=== PATIENT | male | born 1985 | race Two or more races ===

== ENCOUNTER 2018-07-02 16:21 | Emergency (ER) | payer SELFPAY ==
[~2018-07-02] VITALS: Ht 165.1 cm; Wt 54.4 kg
[2018-07-02 16:57] LABS: BASO # 0.2 x10^3/uL (0.0-0.2); BASO % 1 % (0-3); EOS # 0.1 x10^3/uL (0.0-0.7); EOS % 1 % (0-3); HEMATOCRIT 44.4 % (39.0-53.0); LYMPH # 2.7 x10^3/uL (1.0-4.8); LYMPH % 18 % (24-48); MEAN CORPUSCULAR HEMOGLOBIN 30 pg (25-35); MEAN CORPUSCULAR HGB CONC 34 g/dL (31-37); MEAN CORPUSCULAR VOLUME 90 fL (79-100); MONO # 0.7 x10^3/uL (0.0-1.1); MONO % 5 % (0-9); NEUT # 11.6 x10^3uL (1.8-7.7); NEUT % 76 % (31-73); PLATELET COUNT 319 x10^3/uL (140-400); RED BLOOD COUNT 4.95 x10^6/uL (4.30-5.70); WHITE BLOOD COUNT 15.2 x10^3/uL (4.0-11.0)
[2018-07-02] MEDS ORDERED: IOHEXOL 300 MG/ML 100ML VIAL. IV ONE (17:00)
[2018-07-02] MEDS ORDERED: ONDANSETRON PF 4 MG/2 ML VIAL. IV ONE (17:00)
[2018-07-02] MEDS ORDERED: MORPHINE SULFATE 4 MG/ML VIAL. IV ONE (17:00)
[2018-07-02] MEDS ORDERED: IV NORMAL SALINE 1000ML BAG 1,000 ML IV ONE (17:00)
[2018-07-02 17:11] LABS: ALBUMIN 4.4 g/dL (3.4-5.0); ALBUMIN/GLOBULIN RATIO 1.3 (1.0-1.7); CALCIUM 9.3 mg/dL (8.5-10.1); CREATININE 0.9 mg/dL (0.7-1.3); GFR 97.8; TOTAL BILIRUBIN 0.9 mg/dL (0.2-1.0); TOTAL PROTEIN 7.9 g/dL (6.4-8.2)
[2018-07-02 17:13] LABS: POTASSIUM 2.9 mmol/L (3.5-5.1)
[2018-07-02] MEDS ORDERED: CONTRAST GIVEN. MC PRN (17:15)
--- NOTE | 2018-07-02 17:45 | RAD ---
CT abdomen and pelvis with contrast: Reason for examination: Right lower quadrant pain. Evaluate for appendicitis. Helical images were obtained through the abdomen and pelvis with intravenous administration of 75 cc Omnipaque 300. Reconstruction was performed in sagittal and coronal planes. Exposure: One or more of the following individualized dose reduction techniques were utilized for this examination: 1. Automated exposure control 2. Adjustment of the mA and/or kV according to patient size 3. Use of iterative reconstruction technique. The lung bases are clear. The heart size is normal with no pericardial effusion seen. No abnormality seen at the liver, spleen, adrenal glands, gallbladder or pancreas. The kidneys show no renal masses the left kidney shows no hydronephrosis, renal calculi or obstructive uropathy. The right kidney however shows mild hydronephrosis and dilated ureter down to a calculus at the ureterovesical junction which appears to measure approximately 3.7 mm in greatest dimension. No abnormality seen at the appendix. The intestinal tract shows no abnormally dilated loops of bowel or bowel obstruction. No abnormalities in the stomach. The abdominal aorta and inferior vena cava show no acute abnormalities. No abnormality seen at the bladder, prostate gland or seminal vesicles. No acute bony abnormalities are seen. IMPRESSION: 3.7 mm calculus at the right ureterovesical junction causing obstructive uropathy with mild hydronephrosis. No abnormality seen at the appendix. Electronically signed by: Melina Arias MD (07/02/2018 5:42 PM) [facility]
[2018-07-02] MEDS ORDERED: HYDR-3164 PO (17:57)
[2018-07-02] MEDS ORDERED: ONDA4TAB7 PO (17:57)
[2018-07-02] MEDS ORDERED: TAMS0.4C97 PO (17:57)
[2018-07-02 18:00] VITALS: BP 133/72
[2018-07-02] MEDS ORDERED: POTASSIUM CHLORIDE 20 MEQ/15 ML ORAL LIQUID. PO ONE (18:00)
[2018-07-02] MEDS ORDERED: KETOROLAC 15 MG/ML VIAL. IV ONE (18:00)
--- NOTE | 2018-07-02 18:14 | PHYS DOC ---
Past Medical History Past Medical History: No Pertinent History Past Surgical History: No Surgical History Alcohol Use: None Drug Use: Marijuana Adult General Chief Complaint Chief Complaint: ABDOMINAL PAIN HPI HPI Patient is a 33 year old M P/W ABDO PAIN, RLQ PAIN. Sudden onset radiates to groin severe also feeling and some in the back had an episode of vomiting prior to arrival no prior history of anything Review of Systems Review of Systems Constitutional: Denies fever or chills [] Eyes: Denies change in visual acuity, redness, or eye pain [] HENT: Denies nasal congestion or sore throat [] Respiratory: Denies cough or shortness of breath [] Cardiovascular: No additional information not addressed in HPI [] GI: Integument: Denies rash or skin lesions [] Neurologic: Denies headache, focal weakness or sensory changes [] Endocrine: Denies polyuria or polydipsia [] All other systems were reviewed and found to be within normal limits, except as documented in this note. Current Medications Current Medications Current Medications Medications (Trade) Dose Ordered Sig/Marlene Start Time Stop Time Status Last Admin Dose Admin Info (CONTRAST GIVEN -- Rx MONITORING) 1 each PRN DAILY PRN 07/02/18 17:15 07/04/18 17:14 Iohexol (Omnipaque 300 Mg/ml) 75 ml 1X ONCE 07/02/18 17:00 07/02/18 17:01 DC 07/02/18 17:21 75 ML Ketorolac Tromethamine (Toradol 15mg Vial) 15 mg 1X ONCE 07/02/18 18:00 07/02/18 18:01 DC Morphine Sulfate (Morphine Sulfate) 4 mg 1X ONCE 07/02/18 17:00 07/02/18 17:01 DC 07/02/18 17:06 4 MG Ondansetron HCl (Zofran) 4 mg 1X ONCE 07/02/18 17:00 07/02/18 17:01 DC 07/02/18 17:05 4 MG Potassium Chloride (KCl Oral Soln) 40 meq 1X ONCE 07/02/18 18:00 07/02/18 18:01 DC Sodium Chloride 1,000 ml @ 1,000 mls/hr 1X ONCE 07/02/18 17:00 07/02/18 17:59 DC 07/02/18 17:05 1,000 MLS/HR Allergies Allergies Allergies Coded Allergies Type Severity Reaction Last Updated Verified No Known Drug Allergies 07/02/18 No Physical Exam Physical Exam Constitutional: Well developed, well nourished, no acute distress, non-toxic appearance. [] HENT: Normocephalic, atraumatic, bilateral external ears normal, oropharynx moist, no oral exudates, nose normal. [] Eyes: PERRLA, EOMI, conjunctiva normal, no discharge. [] Neck: Normal range of motion, no tenderness, supple, no stridor. [] Cardiovascular:Heart rate regular rhythm, no murmur [] Lungs & Thorax: Bilateral breath sounds clear to auscultation [] Abdomen: Bowel sounds normal, soft, RLQ tenderness, no masses, no pulsatile masses. [] : TESTICLES NORMAL NO TTP Skin: Warm, dry, no erythema, no rash. [] Back: No tenderness, no CVA tenderness. [] Extremities: No tenderness, no cyanosis, no clubbing, ROM intact, no edema. [] Neurologic: Alert and oriented X 3, normal motor function, normal sensory function, no focal deficits noted. [] Psychologic: Affect normal, judgement normal, mood normal. [] Current Patient Data Vital Signs Vital Signs Date Time Temp Pulse Resp B/P (MAP) Pulse Ox O2 Delivery O2 Flow Rate FiO2 07/02/18 17:06 20 98 Room Air 07/02/18 17:00 58 133/71 (91) 07/02/18 16:40 98.4 98.4 Lab Values Laboratory Tests Test 07/02/18 16:50 White Blood Count 15.2 x10^3/uL (4.0-11.0) H Red Blood Count 4.95 x10^6/uL (4.30-5.70) Hemoglobin 15.0 g/dL (13.0-17.5) Hematocrit 44.4 % (39.0-53.0) Mean Corpuscular Volume 90 fL (79-100) Mean Corpuscular Hemoglobin 30 pg (25-35) Mean Corpuscular Hemoglobin Concent 34 g/dL (31-37) Red Cell Distribution Width 13.0 % (11.5-14.5) Platelet Count 319 x10^3/uL (140-400) Neutrophils (%) (Auto) 76 % (31-73) H Lymphocytes (%) (Auto) 18 % (24-48) L Monocytes (%) (Auto) 5 % (0-9) Eosinophils (%) (Auto) 1 % (0-3) Basophils (%) (Auto) 1 % (0-3) Neutrophils # (Auto) 11.6 x10^3uL (1.8-7.7) H Lymphocytes # (Auto) 2.7 x10^3/uL (1.0-4.8) Monocytes # (Auto) 0.7 x10^3/uL (0.0-1.1) Eosinophils # (Auto) 0.1 x10^3/uL (0.0-0.7) Basophils # (Auto) 0.2 x10^3/uL (0.0-0.2) Sodium Level 142 mmol/L (136-145) Potassium Level 2.9 mmol/L (3.5-5.1) *L Chloride Level 104 mmol/L (98-107) Carbon Dioxide Level 25 mmol/L (21-32) Anion Gap 13 (6-14) Blood Urea Nitrogen 9 mg/dL (8-26) Creatinine 0.9 mg/dL (0.7-1.3) Estimated GFR (Cockcroft-Gault) 97.8 BUN/Creatinine Ratio 10 (6-20) Glucose Level 126 mg/dL (70-99) H Calcium Level 9.3 mg/dL (8.5-10.1) Total Bilirubin 0.9 mg/dL (0.2-1.0) Aspartate Amino Transferase (AST) 21 U/L (15-37) Alanine Aminotransferase (ALT) 17 U/L (16-63) Alkaline Phosphatase 111 U/L (46-116) Total Protein 7.9 g/dL (6.4-8.2) Albumin 4.4 g/dL (3.4-5.0) Albumin/Globulin Ratio 1.3 (1.0-1.7) Lipase 86 U/L (73-393) Laboratory Tests 07/02/18 16:50 Laboratory Tests 07/02/18 16:50 EKG EKG [] Radiology/Procedures Radiology/Procedures [] Impressions: IMPRESSION: 3.7 mm calculus at the right ureterovesical junction causing obstructive uropathy with mild hydronephrosis. No abnormality seen at the appendix. Electronically signed by: Melina Garcia MD (07/02/2018 5:42 PM) [facility] DICTATED and SIGNED BY: MELINA GARCIA MD DATE: 07/02/181741 Course & Med Decision Making Course & Med Decision Making Pertinent Labs and Imaging studies reviewed. (See chart for details) []KIDNEY STONE [facility]. Dragon Disclaimer Dragon Disclaimer This electronic medical record was generated, in whole or in part, using a voice recognition dictation system. Departure Departure Impression: Primary Impression: Kidney stone Condition: STABLE Referrals: MARIAM SANTANA MD Patient Instructions: Kidney Stones, [id number] Scripts Ondansetron Hcl (ZOFRAN) 4 Mg Tablet 4 MG PO PRN TID PRN for NAUSEA/VOMITING, #15 nausea/vomiting Prov: RADHA STEVENSON MD 07/02/18 Hydrocodone/Apap 5-325 (NORCO 5-325 TABLET) 1 Each Tablet 1-2 EACH PO PRN Q6HRS PRN for PAIN, #15 as needed for pain Prov: RADHA STEVENSON MD 07/02/18 Tamsulosin Hcl (FLOMAX) 0.4 Mg Cap.er.24h 1 CAP PO DAILY, #30 CAP 0 Refills Prov: RADHA STEVENSON MD 07/02/18 RADHA STEVENSON MD Jul 02, 2018 18:14
[2018-07-02 18:37] LABS: BILIRUBIN,URINE NEGATIVE (NEG); CLARITY,URINE CLEAR; COLOR,URINE YELLOW; NITRITE,URINE NEGATIVE (NEG); PH,URINE 7.5; PROTEIN,URINE NEGATIVE (NEG-TRACE); UROBILINOGEN,URINE 0.2 mg/dL (0.2 mg/dL)
[2018-07-02 18:46] LABS: BACTERIA,URINE 0 /HPF (0-FEW); WBC,URINE 0 /HPF (0-4)
== END 2018-07-02 19:31 | disposition home or self-care (01) ==
LOC: ER 16:21
DX: N20.0 Calculus of kidney (principal); R10.31 Right lower quadrant pain; R11.10 Vomiting, unspecified
CPT/HCPCS: 36415; 74177; 80053; 81001; 83690; 85025; 96361; 96374; 96375; 99285; J1885; J2270; J2405; J7030; Q9967